=== PATIENT | female | born 1965 | race Caucasian/White ===

== ENCOUNTER → 2019-07-05 | Outpatient (CLI) | payer BC ==
[~2019-07-05] MED LIST: ALLEGRA 180MG180 MG PO; DOXYCYCLINE 10100 MG PO; EPA/GLA1 SGL PO; GREEN TEA150 MG PO; IMITREX100 MG PO; MAXALT10 MG PO; MELATONIN 0.3MG PO; MULTIPLE VITAMI1 CAP PO; NO HOME MEDICATIONS; NORCO 325 MG-51 TAB PO; PHENERGAN W/CO120 ML PO; TYLENOL 325MG325 MG PO; TYLENOL 500MG500 MG PO; VITAMIN B-12100 MCG PO; WELLBUTRIN XL300 M1 PO
== END ==
LOC: SDCO 05-07 09:15 → COL.LAB 08:00 → SDCO 07-09 09:15 → EDSTATUS 07-09 09:15
DX: Z12.11 Encounter for screening for malignant neoplasm of colon (principal); Z80.0 Family history of malignant neoplasm of digestive organs